=== PATIENT | male | born 1980 | race Two or more races ===

== ENCOUNTER 2024-03-04 02:17 | Inpatient (IN) | payer MEDICAID ==
[~2024-03-04] VITALS: Ht 172.7 cm; Wt 74.8 kg
[2024-03-04] MEDS ORDERED: METF-1211 PO (02:25)
[2024-03-04 02:52] LABS: BASOPHILS % (AUTO) 0.5 % (0.0-2.0); EOSINOPHILS % (AUTO) 0.3 % (1.0-6.0); HEMATOCRIT 44.3 % (41-53); HEMOGLOBIN 15.4 g/dL (13.5-17.5); LYMPHOCYTES # (AUTO) 2.1 K/uL (1.0-4.8); LYMPHOCYTES % (AUTO) 20.6 % (22.0-44.0); MEAN CORPUSCULAR HEMOGLOBIN 30.8 pg (26.0-34.0); MEAN CORPUSCULAR HGB CONC 34.8 G/dL (31.0-37.0); MEAN CORPUSCULAR VOLUME 88 fL (80-100); MONOCYTES # (AUTO) 0.6 K/uL (0.1-1.0); MONOCYTES % (AUTO) 5.8 % (2.0-9.0); NEUTROPHILS # (AUTO) 7.4 K/uL (1.8-7.7); NEUTROPHILS % (AUTO) 72.8 % (40.0-70.0); PLATELET COUNT (AUTO) 219 K/uL (150-450); RED BLOOD CELL COUNT(AUTO) 5.01 MIL/uL (4.50-5.90); RED CELL DISTRIBUTION WIDTH 12.9 % (11.5-14.5); WHITE BLOOD COUNT (AUTO) 10.1 K/uL (4.5-11.0)
[2024-03-04 03:04] LABS: ANION GAP 17 mmol/L (8-16); CALCIUM, TOTAL 8.7 mg/dL (8.8-10.5); CARBON DIOXIDE 21 mmol/L (22-29); CHLORIDE 100 mmol/L (98-107); CREATININE 0.72 mg/dL (0.60-1.30); GLOMERULAR FILTR. RATE CALC > 60 mL/min (>60); GLUCOSE,RANDOM 298 mg/dL (70-110); POTASSIUM 3.6 mmol/L (3.5-5.1); SODIUM SERUM 138 mmol/L (136-145); UREA NITROGEN, BLOOD 9 mg/dL (7-18)
[2024-03-04 03:10] LABS: ALANINE AMINOTRANSFERASE 27 U/L (12-78); ALBUMIN 3.7 g/dL (3.4-5.0); ALKALINE PHOSPHATASE 118 U/L (46-116); ASPARTATE AMINOTRANSFERASE 16 U/L (15-37); BILIRUBIN,TOTAL 0.4 mg/dL (0.1-1.0); TOTAL PROTEIN, SERUM 7.2 g/dL (6.4-8.2)
[2024-03-04 03:11] LABS: ALCOHOL, BLOOD (SERUM) 100 mg/dL (0-10)
[2024-03-04 03:13] LABS: ACETAMINOPHEN < 2 mcg/mL (10-30)
[2024-03-04 03:18] LABS: SALICYLATE 1.6 mg/dL (2.8-20.0)
[2024-03-04 04:00] LABS: PH,URINE DRUG SCREEN 5.5 (5.0-8.0)
[2024-03-04] MEDS ORDERED: ZOLPIDEM TARTRATE 10 MG TABLET PO PRN (04:00)
[2024-03-04] MEDS ORDERED: HALOPERIDOL 5 MG TABLET PO PRN (04:00)
[2024-03-04 04:05] LABS: COVID AG,FIA SOURCE NASAL SWAB
[2024-03-04 04:06] LABS: ALCOHOL, URINE DRUG SCREEN POSITIVE (NEGATIVE); AMPHET/METH SCREEN,URINE NEGATIVE (NEGATIVE); BARBITURATE SCREEN, URINE NEGATIVE (NEGATIVE); BENZODIAZEPINES SCREEN,URINE NEGATIVE (NEGATIVE); CANNABINOID SCREEN,URINE NEGATIVE (NEGATIVE); COCAINE SCREEN,URINE POSITIVE (NEGATIVE); METHADONE SCREEN, URINE NEGATIVE (NEGATIVE); OPIATE SCREEN,URINE NEGATIVE (NEGATIVE); PHENCYCLIDINE SCREEN,URINE NEGATIVE (NEGATIVE)
[2024-03-04 04:11] LABS: APPEARANCE,URINE CLEAR (CLEAR); BILIRUBIN,URINE NEGATIVE (NEGATIVE); COLOR,URINE LIGHT YELLOW (YELLOW); GLUCOSE, URINE (UA) >=1000 mg/dL (NEGATIVE); KETONES,URINE TRACE mg/dL (NEGATIVE); LEUKOCYTE ESTERASE ,URINE NEGATIVE (NEGATIVE); NITRATE,URINE NEGATIVE (NEGATIVE); OCCULT BLOOD,URINE NEGATIVE (NEGATIVE); PH,URINE 5.5 (5.0-8.0); PROTEIN,URINE NEGATIVE (NEGATIVE); SPECIFIC GRAVITIY, URINE 1.027 (1.003-1.030); UROBILINOGEN,URINE <=1.0 mg/dL (<=1.0)
[2024-03-04 04:16] LABS: SARS-COV2 (COVID) ANTIGEN,FIA Negative (Negative)
[2024-03-04 04:26] LABS: RBC,URINE None Seen /HPF (0-2); WBC,URINE None Seen /HPF (0-5)
[2024-03-04 04:27] LABS: BACTERIA,URINE None Seen /HPF (None Seen); SQUAMOUS EPITHELIAL CELL,UR None Seen /LPF (None Seen)
[2024-03-04] MEDS: ONDANSETRON HCL 4 MG/2 ML VIAL IVP ONE (06:02)
[2024-03-04] MEDS: LORazepam 2 MG TABLET PO PRN (06:02)
[2024-03-04 06:40] LABS: GLUCOMETER DEV NAME(LOC) ERT.5; GLUCOSE,POINT OF CARE 237 MG/DL (70-110)
[2024-03-04 11:30] VITALS: BP 123/88; PULSE 98; RESP 18; TEMP 97.9; O2SAT 97
[2024-03-04 14:30] VITALS: BP 123/88; PULSE 98; RESP 18; TEMP 97.1; O2SAT 97
[2024-03-04 15:30] VITALS: BP 120/78; PULSE 84; RESP 18; TEMP 97.5; O2SAT 99
[2024-03-04] MEDS ORDERED: GLUCAGON,HUMAN RECOMBINANT 1 MG VIAL IM PRN (15:30)
[2024-03-04 16:11] LABS: GLUCOMETER DEV NAME(LOC) BV2S.; GLUCOSE,POINT OF CARE 247 MG/DL (70-110)
[2024-03-04] MEDS ORDERED: PNEUMOCOCCAL VACCINE POLYVALENT 0.5 ML SYRINGE [PPSV23] IM. ONE (16:15)
[2024-03-04] MEDS: INSULIN LISPRO 100 UNITS/ML SQ PRN (16:47)
[2024-03-04 20:35] LABS: GLUCOMETER DEV NAME(LOC) BV2S.; GLUCOSE,POINT OF CARE 351 MG/DL (70-110)
[2024-03-04 21:05] VITALS: BP 125/89; PULSE 109; RESP 17; TEMP 97.3; O2SAT 97
[2024-03-04 21:55] VITALS: BP 125/89; PULSE 109; RESP 18; TEMP 97.3; O2SAT 97
[2024-03-05] VITALS (9 sets, daily range): BP systolic 106–131; BP diastolic 62–89; PULSE 77–99; RESP 17–19; TEMP 97.5–98.4; O2SAT 96–98
[2024-03-05 06:26] LABS: GLUCOMETER DEV NAME(LOC) BV2S.; GLUCOSE,POINT OF CARE 259 MG/DL (70-110)
[2024-03-05] MEDS: NICOTINE 14 MG/24 HOUR PATCH TD SCH (09:10)
[2024-03-05] MEDS: ESCITALOPRAM OXALATE 10 MG TABLET PO SCH (09:10)
[2024-03-05 11:26] LABS: GLUCOMETER DEV NAME(LOC) BV2S.; GLUCOSE,POINT OF CARE 323 MG/DL (70-110)
[2024-03-05] MEDS ORDERED: SERTRALINE HCL 50 MG TABLET PO SCH (13:00)
[2024-03-05] MEDS ORDERED: ALBUTEROL SULFATE HFA 90 MCG/PUFF 8 GM INHALER IH PRN (14:45)
[2024-03-05] MEDS ORDERED: IBUPROFEN 400 MG TABLET PO PRN (14:45)
[2024-03-05] MEDS ORDERED: DOCUSATE SODIUM 100 MG CAPSULE PO PRN (14:45)
[2024-03-05] MEDS ORDERED: LOPERAMIDE HCL 2 MG CAPSULE PO PRN (14:45)
[2024-03-05] MEDS ORDERED: ACETAMINOPHEN 325 MG TABLET PO PRN (14:45)
[2024-03-05] MEDS ORDERED: CloNIDine HCL 0.1 MG TABLET PO PRN (14:45)
[2024-03-05] MEDS ORDERED: MAGNESIUM HYDROXIDE SUSPENSION 30 ML UDCUP PO PRN (14:45)
[2024-03-05] MEDS ORDERED: MAG HYDROX/ALUMINUM HYD/SIMETH ES 30 ML SUSPENSION UDCUP PO PRN (14:45)
[2024-03-05] MEDS ORDERED: ONDANSETRON HCL 4 MG TABLET PO PRN (14:45)
[2024-03-05] MEDS ORDERED: GuaiFENesin/D-METHORPHAN [SUGAR-FREE] 200-20MG/10 ML SYRUP UDCUP PO PRN (14:45)
[2024-03-05] MEDS ORDERED: PETROLATUM,WHITE 28 GM JELLY TP PRN (14:45)
[2024-03-05 16:35] LABS: GLUCOMETER DEV NAME(LOC) BV2S.; GLUCOSE,POINT OF CARE 325 MG/DL (70-110)
[2024-03-05] MEDS: MetFORMIN HCL 500 MG TABLET PO SCH (16:41)
[2024-03-06 06:35] LABS: GLUCOMETER DEV NAME(LOC) BV2S.; GLUCOSE,POINT OF CARE 246 MG/DL (70-110)
[2024-03-06 06:35] LABS: GLUCOMETER DEV NAME(LOC) BV2S.; GLUCOSE,POINT OF CARE 358 MG/DL (70-110)
[2024-03-06 08:32] VITALS: BP 104/56; PULSE 81; RESP 17; TEMP 98; O2SAT 96
[2024-03-06] MEDS: SERTRALINE HCL 50 MG TABLET PO SCH (08:43)
[2024-03-06] MEDS: FOLIC ACID 1 MG TABLET PO SCH (08:43)
[2024-03-06] MEDS: THIAMINE 100 MG TABLET PO SCH (08:43)
[2024-03-06 08:48] LABS: CHOL/HDL RATIO 5.4 (4.2-7.3); THYROID STIMULATING HORMONE 0.82 uIU/mL (0.36-3.74)
[2024-03-06 11:20] LABS: GLUCOMETER DEV NAME(LOC) BV2S.; GLUCOSE,POINT OF CARE 309 MG/DL (70-110)
[2024-03-06 14:03] VITALS: BP 128/70; PULSE 80; RESP 18; TEMP 98.2; O2SAT 98
[2024-03-06] MEDS: MetFORMIN HCL 850 MG TABLET PO SCH (16:34)
[2024-03-06 16:35] LABS: GLUCOMETER DEV NAME(LOC) BV2S.; GLUCOSE,POINT OF CARE 321 MG/DL (70-110)
[2024-03-06 20:19] VITALS: BP 109/71; PULSE 85; RESP 18; TEMP 97.9; O2SAT 98
[2024-03-06 20:31] LABS: GLUCOMETER DEV NAME(LOC) BV2S.; GLUCOSE,POINT OF CARE 198 MG/DL (70-110)
[2024-03-06] MEDS: ROSUVASTATIN CALCIUM 20 MG TABLET PO SCH (20:33)
[2024-03-07 06:55] LABS: GLUCOMETER DEV NAME(LOC) BV2S.; GLUCOSE,POINT OF CARE 245 MG/DL (70-110)
[2024-03-07 08:37] VITALS: BP 136/88; PULSE 94; RESP 17; TEMP 97.5; O2SAT 97
[2024-03-07 11:30] LABS: GLUCOMETER DEV NAME(LOC) BV2S.; GLUCOSE,POINT OF CARE 281 MG/DL (70-110)
[2024-03-07] MEDS ORDERED: SERT-158 PO (12:21)
== END 2024-03-07 13:30 | disposition home or self-care (01) | DRG 751 ==
LOC: EMS 02:17 → B2S 07:04
PROVIDERS: ADMIT Psychiatry & Neurology Child & Adolescent Psychiatry; ATTEND Psychiatry & Neurology Child & Adolescent Psychiatry
DX: F33.2 Major depressive disorder, recurrent severe without psychotic features (principal); R45.851 Suicidal ideations; T50.991A Poisoning by other drugs, medicaments and biological substances, accidental (unintentional), initial encounter; E11.65 Type 2 diabetes mellitus with hyperglycemia; Z20.822 Contact with and (suspected) exposure to COVID-19; G47.00 Insomnia, unspecified; F41.9 Anxiety disorder, unspecified; F14.10 Cocaine abuse, uncomplicated; Y92.89 Other specified places as the place of occurrence of the external cause; F10.129 Alcohol abuse with intoxication, unspecified; Z87.891 Personal history of nicotine dependence
CPT/HCPCS: 80053; 80061; 80307; 81001; 82962; 83036; 84443; 85025; G0480; G0481; J2405